=== PATIENT | female | born 1990 | race Caucasian/White ===

== ENCOUNTER 2020-10-25 09:34 | Outpatient (RCR) | payer OTHER, SELFPAY ==
[2020-10-25 10:13] VITALS: BP 109/72; PULSE 74
== END 2020-12-06 10:21 | disposition home or self-care (01) ==
LOC: ANHOBOP 09:34
PROVIDERS: Visit Provider Obstetrics & Gynecology
DX: O24.419 Gestational diabetes mellitus in pregnancy, unspecified control (principal); Z3A.34 34 weeks gestation of pregnancy
CPT/HCPCS: 59025

== ENCOUNTER 2020-11-08 11:51 | Inpatient (IN) | payer OTHER, SELFPAY ==
[2020-11-08] VITALS (37 sets, daily range): BP systolic 93–114; BP diastolic 51–71; PULSE 58–82; RESP 18; TEMP 36.6–36.8; O2SAT 96–100; BMI 34.3; BMI 33.8
[2020-11-08 17:29] LABS: Basophils Percent Auto 0.2 % (0.2-1.2); Eosinophils Absolute Auto 0.1 K/mm3 (0-0.3); Eosinophils Percent Auto 0.4 % (0-4.4); Hematocrit 35.8 % (37.0-47.0); Hemoglobin 12.1 g/dL (12.0-15.0); Immature Granulocyte Absolute 0.06 K/mm3 (0.00-0.031); Immature Granulocyte Percent A 0.4 % (0-0.5); Lymphocytes Absolute Auto 2.42 K/mm3 (0.9-3.2); Lymphocytes Percent Auto 15.4 % (18.3-44.2); Mean Corpuscular HGB Conc 33.8 g/dl (32-36); Mean Corpuscular Hemoglobin 31.7 pg (26-34); Mean Corpuscular Volume 93.7 fl (80-100); Mean Platelet Volume 12.7 fl (7.4-10.4); Monocytes Absolute Auto 1.1 K/mm3 (0.1-0.6); Monocytes Percent Auto 6.8 % (2.6-8.5); Neutrophils Percent Auto 76.8 % (45.5-73.1); Platelet Count Result 178 k/mm3 (150-375); Red Blood Count 3.82 M/mm3 (4.2-5.4); Red Cell Distribution Width 13.5 % (11.5-14.5); White Blood Count 15.7 K/mm3 (4.5-10.0)
[2020-11-08] MEDS: LACTATED RINGERS 1,000 ML 125 ML IV CONT (17:39)
--- NOTE | 2020-11-08 17:45 | PM.IMHP ---
H&P: HPI History of Present Illness Date/Time: 11/08/20 17:45 This patient is a 31-year-old female presents for abnormal heart tones. She is a 2 para 1001 at 36-,5/7 weeks with previous delivery. She was found to have a heart deceleration in the office. Upon extended monitoring, she has had multiple deep prolonged decelerations with movement. We have agreed to proceed with delivery. She denies any contractions, loss of fluid, vaginal bleeding. She denies any nausea, vomiting, fever, chills. She denies any chest pain shortness of breath. Chief Complaint: Thirty-six week gestation Review of Systems Constitutional: Constitutional: Reports no additional constitutional complaints, Denies fatigue, Denies headache(s), Denies lethargy and Denies weakness Eyes: Eyes: Reports no additional eye complaints, Denies blurry vision and Denies photophobia ENT: Reports as per HPI, Denies headache(s) and Denies neck pain Cardiovascular: Cardiovascular: Denies chest pain, Denies diaphoresis, Denies leg edema, Denies palpitations and Denies dyspnea Respiratory: Respiratory: Denies hemoptysis, Denies dyspnea and Denies wheezing Gastrointestinal: Gastrointestinal: Denies abdominal pain, Denies melena, Denies bloating, Denies hematochezia, Denies nausea and Denies vomiting Genitourinary: Genitourinary: Reports no additional female genitourinary complaints Musculoskeletal: Musculoskeletal: Denies joint swelling, Denies neck pain, Denies numbness and Denies stiffness Neurologic: Denies Abnormal speech present, Denies confusion, Denies headache(s), Denies numbness and Denies weakness Psychiatric: Psychiatric: Denies anxiety, Denies confusion, Denies depression, Denies homicidal ideation and Denies suicidal ideation Endocrine: Endocrine: Denies fatigue and Denies palpitations Allergic/Immunologic: Allergic/Immunologic: Denies wheezing [facility] Family History Family History (Updated 11/05/20 @ 15:39 by Brian Angelo RN) Father Hypertension Mother Hypertension Sibling Hypertension Grandparent Hypertension Diabetes mellitus Nicole's granulomatosis Social History Social History Substance use: never Spiritual care concerns: No Meds Home Medications and Allergies Home Medications Medication Instructions Recorded Confirmed Type prenat.vits,cristina,[id number] 1 tablet PO DAILY 11/05/20 11/05/20 History [ #2] Allergies Allergy/AdvReac Type Severity Reaction Status Date / Time amoxicillin Allergy Mild Nausea and Verified 11/08/20 16:40 Vomiting Cephalosporins Allergy Mild hives Verified 11/08/20 16:40 clavulanic acid Allergy Mild Nausea and Verified 11/08/20 16:40 Vomiting Penicillins Allergy Mild Nausea and Verified 11/08/20 16:40 Vomiting cephalexin Allergy Unknown Hives Verified 11/08/20 16:40 metoclopramide Allergy Unknown Hallucinati Verified 11/08/20 16:40 ng Exam Const: General: healthy appearing, comfortable and no acute distress; No confusion Orientation/consciousness: No confusion Eyes: Direct Ophthalmoscopy: No photophobia Resp: Auscultation: clear to auscultation bilaterally, no rales, no rhonchi and no wheezes Cardio: Rate: regular rate Heart sounds: no click, no murmurs and no rubs GI: Inspection: non-distended GI Palp: No abdominal tenderness Auscultation: normal bowel sounds Neuro: General: No confusion Speech: No Abnormal speech present Extrem: General: normal to inspection, no pedal edema and no calf tenderness H&P: Results Labs Labs: Short CBC 11/08/20 Range/Units 17:16 WBC 15.7 H (4.5-10.0) K/mm3 Hgb 12.1 (12.0-15.0) g/dL Hct 35.8 L (37.0-47.0) % Plt Count 178 (150-375) k/mm3 Assessment and Plan Assessment and plan (1) Non-reassuring heart tones complicating , antepartum: Code(s): O36.8390 - Maternal care for abnormalities of the heart rate or rhythm,
--- NOTE | 2020-11-08 17:49 | WPDHPUPDATE1 ---
History and Physical Update Update Date/Time: 11/08/20 17:49 History and Physical has been reviewed, including an updated exam of the patient. There are NO changes in the patient's condition. Risks, benefits, and alternatives have been discussed and questions answered. Patient agrees to proceed with procedure.
[2020-11-08] MEDS: CLINDAMYCIN 900 MG/D5W 50 ML 900 MG/50 ML PIGGYBACK 50 MG IVPB (17:50)
[2020-11-08] MEDS: GENTAMICIN SULFATE INJ 440 MG in DEXTROSE 5% 100 ML 100 MG IVPB (18:27)
--- NOTE | 2020-11-08 18:28 | WPDANESEPPF ---
Anes - Initial Pre Proc Eval Procedure: Repeat C section Date/Time: 11/08/20 18:28 Surgeon: Elvira Barlow MD Pre Op Diagnosis: Previous C section, Non reassuring heart tones Pre Op Diagnosis: NST Patient Data Age: 30 Gender: F Height: 1.61 m Weight: 88 kg Allergies Allergy/AdvReac Type Severity Reaction Status Date / Time amoxicillin Allergy Mild Nausea and Verified 11/08/20 16:40 Vomiting Cephalosporins Allergy Mild hives Verified 11/08/20 16:40 clavulanic acid Allergy Mild Nausea and Verified 11/08/20 16:40 Vomiting Penicillins Allergy Mild Nausea and Verified 11/08/20 16:40 Vomiting cephalexin Allergy Unknown Hives Verified 11/08/20 16:40 metoclopramide Allergy Unknown Hallucinati Verified 11/08/20 16:40 ng Home Medications Medication Instructions Recorded Confirmed Type prenat.vits,cristina,wns-[id number] 1 tablet PO DAILY 11/05/20 11/05/20 History [ #2] Laboratory Tests 11/08/20 11/08/20 11/08/20 17:16 17:16 17:16 WBC 15.7 K/mm3 H K/mm3 (4.5-10.0) RBC 3.82 M/mm3 L M/mm3 (4.2-5.4) Hgb 12.1 g/dL g/dL (12.0-15.0) Hct 35.8 % L % (37.0-47.0) MCV 93.7 fl fl (80-100) MCH 31.7 pg pg (26-34) MCHC 33.8 g/dl g/dl (32-36) RDW 13.5 % % (11.5-14.5) Plt Count 178 k/mm3 k/mm3 (150-375) MPV 12.7 fl H fl (7.4-10.4) Immature Gran % (Auto) 0.4 % % (0-0.5) Neut % (Auto) 76.8 % H % (45.5-73.1) Lymph % (Auto) 15.4 % L % (18.3-44.2) Hickman % (Auto) 6.8 % % (2.6-8.5) Eos % (Auto) 0.4 % % (0-4.4) Baso % (Auto) 0.2 % % (0.2-1.2) Lymph # (Auto) 2.42 K/mm3 K/mm3 (0.9-3.2) Hickman # (Auto) 1.1 K/mm3 H K/mm3 (0.1-0.6) Eos # (Auto) 0.1 K/mm3 K/mm3 (0-0.3) Baso # (Auto) 0.0 K/mm3 K/mm3 (0.0-0.1) Abs Immat Gran (auto) 0.06 K/mm3 H K/mm3 (0.00-0.031) Absolute Neuts (auto) 12.0 K/mm3 H K/mm3 (1.3-6.7) Absolute Nucleated RBC 0.0 K/mm3 K/mm3 (0.0-0.012) Nucleated RBC % 0.0 % % (0.0-0.2) RPR Pending Blood Type O Positive Antibody Screen Negative Patient hx anesthesia problems: none Family hx anesthesia problems: none [facility] Past Medical History Medical History (Updated 11/08/20 @ 18:29 by Jamarcus Villalba DO) GDM (gestational diabetes mellitus) Family History Family History (Updated 11/05/20 @ 15:39 by Brian Angelo RN) Father Hypertension Mother Hypertension Sibling Hypertension Grandparent Hypertension Diabetes mellitus Nicole's granulomatosis Social History Social History Substance use: never Spiritual care concerns: No Anes - Eval Final PreProcedure Day of Procedure 11/08/20 18:28 Patient weight: obese Heart: regular rate and rhythm Lungs: clear to auscultation and normal air movement Airway: Mallampati scale class II Neurological: alert and oriented Last oral intake: >/= 8 hours ASA classification: III Emergent: no Anesthetic plan: proceed Anesthesia type and monitoring: regional spinal and standard monitoring Informed Consent: The patient's anesthetic plan and its attendant risks and benefits were discussed with the patient/family/POA. Questions were solicited and answers provided to the satisfaction of the patient/family/POA.
--- NOTE | 2020-11-08 19:41 | P.OP_ITS ---
Procedure Note - Detailed Date of procedure: 11/08/20 Pre-op diagnosis: NST Nonreassuring FHT's, 36 week gestation Post-op diagnosis: same Procedure performed: low-transverse delivery Description of procedure: The patient was taken the operating room. She was prepped and draped in the dorsal supine position with leftward tilt after induction of spinal anesthetic. When anesthesia was found to be adequate a low- transverse skin incision was made and carried down to the level the fascia with the knife. The fascial incision was made at the midline with a scalpel. The fascial incision was extended laterally with Butts scissors. The fascia was tented upward superior and inferior with Hcava clamps. The rectus muscles were dissected off bluntly. The rectus muscles at the midline. The prepe ritoneal fat was dissected bluntly at the superior aspect of the separate the rectus muscles. The peritoneal cavity was entered bluntly in the same area. The peritoneal incision was extended superior and inferior with good visualization of bladder. Bladder blade was inserted. A low-transverse incision was made on the uterus with the scalpel. It was carried down the level of the amniotic cavity with a knife. The amniotic cavity bluntly. The uterine incision was made laterally with blunt traction. The infant was delivered. The cord was clamped and cut. The infant was handed off to waiting pediatric staff. Cord bloods were obtained. The placenta was removed manually. The uterus was exteriorized. Uterus cleared of all clots and debris. Uterus closed in 0 Vicryl in a running locked fashion. An imbricating layer of 0 Vicryl was also placed on the to bolster the closure. The uterus was returned to the abdomen. The gutters were cleared of all clots and debris. The fascia was closed 0 Vicryl in a running fashion. Subcutaneous tissue was irrigated and bleeding areas were cauterized. The skin was closed with subcuticular absorbable mackenzie. The incision was covered with derma car. The patient tolerated the procedure well. She was taken recovery room stable condition. Sponge, lap, needle counts were correct x2. Anesthesia: spinal Surgeon: Elvira Barlow MD Estimated blood loss (mL): 400 Drains: No Packing: No Pathology: none sent Complications: No immediate complications Condition: stable Disposition: floor Findings: Normal maternal anatomy. Average size infant with normal Apgars. Cord entangled in feet and short
--- NOTE | 2020-11-08 20:47 | LDADM ---
This patient, Selene Alaniz, was admitted to Labor/Delivery/Recovery 119 on 11/08/20 at 11:53. Plans for labor, pain management and were discussed with patient. Patient/family oriented to hospital policies and general routines including ID bracelet, bed and alarms, visiting hours, pain management, procedures, bathroom and other care routines, personal items, smoking policy, room service/diet and guest tray routines, security routines, call light, and visiting hours. Patient/Family are encouraged to report perceived risks to care and to ask questions if they do not understand what they are told or what they should do. See OBIX for further documentation.
[2020-11-08] MEDS: OXYTOCIN 30 UNITS/NS 500 ML 30 UNITS/500 ML BAG 125 UNITS IV CONT (21:05)
--- NOTE | 2020-11-08 22:00 | OBPPTRN ---
Patient transferred to post room #276 via stretcher. Support person present. Oriented to unit, room, information board, rooming in, admission packet and security measures. Patient verbalizes understanding.
[2020-11-09] MEDS: LANOLIN (LANSINOH) 7.5 GM CREAM 1 APPLIC TOPICAL (02:01)
[2020-11-09] MEDS: SIMETHICONE 80 MG TAB.CHEW PO ×3 (02:01→17:52)
[2020-11-09] MEDS: IBUPROFEN 600 MG TABLET PO ×3 (02:02→17:52)
[2020-11-09 04:20] VITALS: BP 106/68; PULSE 72; RESP 18; TEMP 36.8; O2SAT 98
[2020-11-09 06:15] LABS: Basophils Absolute Auto 0.1 K/mm3 (0.0-0.1); Basophils Percent Auto 0.3 % (0.2-1.2); Eosinophils Absolute Auto 0.1 K/mm3 (0-0.3); Eosinophils Percent Auto 0.6 % (0-4.4); Hematocrit 31.8 % (37.0-47.0); Hemoglobin 10.5 g/dL (12.0-15.0); Immature Granulocyte Absolute 0.06 K/mm3 (0.00-0.031); Immature Granulocyte Percent A 0.4 % (0-0.5); Lymphocytes Absolute Auto 1.71 K/mm3 (0.9-3.2); Mean Corpuscular Hemoglobin 31.3 pg (26-34); Mean Corpuscular Volume 94.6 fl (80-100); Monocytes Absolute Auto 1.2 K/mm3 (0.1-0.6); Monocytes Percent Auto 8.2 % (2.6-8.5); Neutrophils Absolute Auto 11.2 K/mm3 (1.3-6.7); Neutrophils Percent Auto 78.5 % (45.5-73.1); Platelet Count Result 166 k/mm3 (150-375); Red Blood Count 3.36 M/mm3 (4.2-5.4); Red Cell Distribution Width 13.5 % (11.5-14.5); White Blood Count 14.3 K/mm3 (4.5-10.0)
--- NOTE | 2020-11-09 06:45 | PC.NURSE ---
PT introductions made and plan of care discussed per post op c section, pain management, breast feeding, pumping, daily care activities. PT will receive instructions via one to one discussion and utilizing the mom baby care guide. recipients are pt and her spouse. No barriers to learning identified. PT verbalized understanding of such instructions.
[2020-11-09 08:45] VITALS: BP 110/67; PULSE 70; RESP 18; TEMP 37; O2SAT 98
--- NOTE | 2020-11-09 10:06 | PM.OBPNVD ---
OB - PN: Subj Subjective Date/time seen: 11/09/20 10:06 Patient comments: no complaints baby status: doing well OB - PN: Obj Data Labs CBC & Chem 7: 11/09/20 04:26 Labs: Laboratory Results - last 24 hr 11/08/20 11/08/20 11/09/20 17:16 17:16 04:26 WBC 15.7 H 14.3 H RBC 3.82 L 3.36 L Hgb 12.1 10.5 L Hct 35.8 L 31.8 L MCV 93.7 94.6 MCH 31.7 31.3 MCHC 33.8 33.0 RDW 13.5 13.5 Plt Count 178 166 MPV 12.7 H 13.0 H Immature Gran % (Auto) 0.4 0.4 Neut % (Auto) 76.8 H 78.5 H Lymph % (Auto) 15.4 L 12.0 L Davidson % (Auto) 6.8 8.2 Eos % (Auto) 0.4 0.6 Baso % (Auto) 0.2 0.3 Lymph # (Auto) 2.42 1.71 Davidson # (Auto) 1.1 H 1.2 H Eos # (Auto) 0.1 0.1 Baso # (Auto) 0.0 0.1 Abs Immat Gran (auto) 0.06 H 0.06 H Absolute Neuts (auto) 12.0 H 11.2 H Absolute Nucleated RBC 0.0 0.0 Nucleated RBC % 0.0 0.0 % Immature Plt Fraction 13.0 H Blood Type O Positive Antibody Screen Negative OB - PN A/P Plan day: 1 Plan: routine care Time Spent With Patient Time: Total time spent is greater than 50% in coordination of care (as documented) at patient's floor/unit and/or counseling patient: Review of Systems Review of Systems: All systems reviewed & are unremarkable except as noted in HPI and below Exam Const: General: cooperative Resp: Effort & Inspection: normal respiratory effort GI: Inspection: other (Incision, small blood pressure dressing applied by RN) Percussion: Yes other
--- NOTE | 2020-11-09 10:33 | WPDANLDPN2 ---
Anes-Prog Note L&D Date/Time: 11/09/20 10:33 Comfortable throughout: section Neuraxial method: spinal Epidural/Spinal procedure site: clean & non-tender Neuro status: Neuro function grossly intact. Cardiovascular status: normal Respiratory status: normal Airway patency: baseline Mental status: baseline Post-Op hydration status: normal Vital Signs: Last Vital Signs Temp 36.8 C 11/09/20 04:20 Pulse 72 11/09/20 04:20 Resp 18 11/09/20 04:20 BP 106/68 11/09/20 04:20 Pulse Ox 98 11/09/20 04:20 Pain score (VAS): 0 I/O: Intake & Output 11/08/20 11/09/20 11/09/20 23:59 07:59 15:59 Intake Total 1050 3900 Output Total 1044 1100 Balance 6 2800 Post-procedural complaints: none Patient feedback: Patient satisfied with anesthetic care.
--- NOTE | 2020-11-09 10:33 | WPDANLDNPN2 ---
Anes-Prog Note L&D-Neuraxial Date/Time: 11/09/20 10:33 Neuraxial medications: intrathecal PF morphine Opiod-related complaints: none Patient feedback: Patient satisfied with post-operative pain management.
[2020-11-09] MEDS: DOCUSATE SODIUM 100 MG CAPSULE PO ×2 (10:41→17:53)
[2020-11-09] MEDS: ACETAMINOPHEN 325 MG TABLET 650 MG PO ×2 (10:41→17:51)
[2020-11-09] MEDS: MULTIVIT/MIN/PREN/FOL AC/IRON TABLET 1 TAB PO (10:41)
[2020-11-09 12:00] VITALS: BP 118/64; PULSE 72; RESP 18; TEMP 36.9; O2SAT 98
[2020-11-09 17:30] VITALS: BP 110/57; PULSE 73; RESP 18; TEMP 37.1; O2SAT 100
[2020-11-09 20:10] VITALS: BP 113/63; PULSE 69; RESP 18; TEMP 36.7; O2SAT 100
[2020-11-10] MEDS: SIMETHICONE 80 MG TAB.CHEW PO ×3 (05:35→19:30)
[2020-11-10] MEDS: ACETAMINOPHEN 325 MG TABLET 650 MG PO ×2 (05:35)
[2020-11-10] MEDS: IBUPROFEN 600 MG TABLET PO ×4 (05:36→19:31)
--- NOTE | 2020-11-10 07:45 | PC.NURSE ---
PT introductions made and plan of care discussed per post op c section, pain management, breast feeding and pumping and bottle feeding, daily care activities. any instruction provided by one to one discussion and mom baby care guide book through the day. PT verbalized understanding of such instructions.
--- NOTE | 2020-11-10 08:23 | PM.OBPNVD ---
OB - PN: Subj Subjective Date/time seen: 11/10/20 08:23 Patient comments: incisional pain (with walking, some oozing) baby status: doing well OB - PN: Obj Data Labs CBC & Chem 7: 11/09/20 04:26 OB - PN A/P Plan day: 2 Plan: routine care Comments: discussed pain management and pt to try norco for pain relief Time Spent With Patient Time: Total time spent is greater than 50% in coordination of care (as documented) at patient's floor/unit and/or counseling patient: Review of Systems Review of Systems: All systems reviewed & are unremarkable except as noted in HPI and below Exam Const: General: cooperative Nutritional Appearance: average body habitus and well nourished Resp: Effort & Inspection: normal respiratory effort GI: Inspection: other (incision , no sign of infection, small oozing, steristrips applied by RN) Psych: Thought process: Normal thought process present Insight: Good insight present (Psych) Judgement: Good judgement present (Psych)
[2020-11-10 09:30] VITALS: BP 120/66; PULSE 75; RESP 18; TEMP 37.3; O2SAT 100
[2020-11-10] MEDS: DOCUSATE SODIUM 100 MG CAPSULE PO (09:37)
[2020-11-10] MEDS: MULTIVIT/MIN/PREN/FOL AC/IRON TABLET 1 TAB PO (09:37)
[2020-11-10] MEDS: HYDROcodone/acetaminophen (*CRX) 5-325 MG TABLET 1 TAB PO ×3 (11:42→19:30)
[2020-11-10 19:30] VITALS: BP 135/63; PULSE 80; RESP 16; TEMP 36.9; O2SAT 100
[2020-11-11] MEDS: SIMETHICONE 80 MG TAB.CHEW PO ×3 (00:46→11:11)
[2020-11-11] MEDS: HYDROcodone/acetaminophen (*CRX) 5-325 MG TABLET 1 TAB PO ×4 (00:46→11:11)
[2020-11-11] MEDS: DOCUSATE SODIUM 100 MG CAPSULE PO ×2 (00:46→08:06)
[2020-11-11] MEDS: IBUPROFEN 600 MG TABLET PO ×2 (04:48→11:10)
[2020-11-11 06:39] LABS: Rapid Plasma Reagin Non-Reactive (NonReactive)
[2020-11-11 08:00] VITALS: BP 117/70; PULSE 77; RESP 18; TEMP 37; O2SAT 100
[2020-11-11] MEDS: MULTIVIT/MIN/PREN/FOL AC/IRON TABLET 1 TAB PO (08:06)
--- NOTE | 2020-11-11 08:30 | PM.OBPNVD ---
OB - PN: Subj Subjective Date/time seen: 11/11/20 08:30 Patient comments: no complaints, pain well controlled, incisional pain, tolerating diet and flatus present OB - PN: Obj Data Labs CBC & Chem 7: 11/09/20 04:26 Labs: Laboratory Results - last 24 hr 11/08/20 17:16 RPR Non-reactive OB - PN A/P Plan day: 3 Plan: routine care, discharge home and other Comments: Incision check in two days. Given precautions Time Spent With Patient Time: Total time spent is greater than 50% in coordination of care (as documented) at patient's floor/unit and/or counseling patient: Exam Const: General: comfortable, no acute distress and alert Resp: Effort & Inspection: normal respiratory effort Auscultation: no crackles, no rales and no rhonchi Cardio: Rate: regular rate Heart sounds: no click, no murmurs and no rubs GI: Inspection: non-distended GI Palp: No Tenderness to palpation present (GI) Auscultation: normal bowel sounds Other: Incision -Steri-Strips cover the middle 3rd of the incision. There is some skin separation this area and it is weeping. Extrem: General: normal to inspection, no pedal edema and no calf tenderness
--- NOTE | 2020-11-11 08:32 | PM.OBDSVD ---
DS: Admitting Diagnosis Admitting Diagnosis Admitting Diagnosis: Term DS: Discharge Diagnosis Discharge Diagnosis (1) delivery delivered: Code(s): O82 - Encounter for delivery without indication Status: Acute (2) Non-reassuring heart tones complicating , antepartum: Code(s): O36.8390 - Maternal care for abnormalities of the heart rate or rhythm, unspecified trimester, not applicable or unspecified Status: Acute (3) 36 weeks gestation of : Code(s): Z3A.36 - 36 weeks gestation of Status: Acute OB - DS: Summary OB Procedures : None OB Procedures Intrapartum: OB Procedures: : None Peripartum Data Procedures: Procedures Operation Date: 11/08/20 19:00 Actual Procedures Side Surgeon p Section Elvira Barlow MD Time Spent with Patient Time attestation: Total time spent providing and/or coordinating discharge services: DS: Data Data Completed and Pending Pending studies at discharge: Pending at discharge 11/11/20 07:33 Surgical [PTH] Routine Labs on day of discharge: Labs from last 24 hours 11/08/20 17:16 RPR Non-reactive Discharge Plan Discharge Discharging Clinician: Elvira Barlow Patient Disposition: Home, Self-Care Activity: pelvic rest Diet: regular Patient Instructions: Antibiotic Form Stand Alone Forms: General Discharge Information Follow-up/Referrals: Elvira Barlow MD [Physician] - Discharge Medications: New hydrocodone-acetaminophen 5-325 mg tablet 1 - 2 tablet PO Q4H PRN (Reason: pain) Qty: 25 RF: 0 Continued #2 Tablet 1 tablet PO DAILY RF: 0 Date of admission: 11/08/20 11:53 Primary Care Provider: PHYSICIAN,ORACLE ANALYST Admitting Provider: Elvira Barlow Attending physician on admission: Elvira Barlow Condition: Stable
--- NOTE | 2020-11-11 09:30 | PC.NURSE ---
Consulted with patient, mother reports infant eagerly fed after delivery then became sleepy and has not effectively fed since. Mother will attempt each feeding then supplement and pumping at times. Discussed and the early 36 5/7 week , establishing may have its own unique set of circumstances due to their immaturity. infants may be less alert, have less stamina and may have issues with latch, suck and swallow. With the possible inability to have a vigorous suck swallow, infants may not be adequately stimulating mother and/or able to have adequate milk transfer. Pumping should be considered for additional stimulation and to offer EBM as part of supplement if needed. Mother reports she has not been pumping regularly due to not getting anything Reviewed milk should transition in within a few days of regular stimulation and EBM may be given as part of each feeding. Mother has been given a nipple shield to use to assist with latch. Mother states she has not used the shield for latching she is uncomfortable with use. Discussed the reasoning of shield use. Mother prefers not to use. Reviewed feeding cues, frequencies, duration of feedings, feeding elimination flow sheet, and signs of adequate intake. Demonstrated stimulation techniques to wake infant for feeding. Assisted with infant to breast. Reviewed positioning/alignment in football, holding breast in C hold and guided asymmetrical latch on. Infant was able to latch correctly after several attempts. Infant held nipple in his mouth with no effective suckling. Attempt for 5 minutes. Feeding plan will be to attempt infant to breast for 5-10 minutes each feeding, the supplement 20-25 mls EBM/formula and then pump 15-20 minutes. Reviewed may not want to feed for 4 hours with 25mls per feeding. Advised mother follow infant feeding plan and increase pumping to 20 minutes if infant is feeding every 4 hours. Discussed signs when infant is ready for increase in supplementation and when may be ready to decrease supplementation. Advised not to discontinue supplement until seen and discussed with ICP or follow up RN. Mother is feeding as required and waking to feed if needed. is currently meeting outcomes for weight, output, jaundice and feeding frequencies. Mother states she feels confident to continue feeding plan of attempt/supplement/pump at home. Reviewed transition to breast milk, signs of adequate intake, and engorgement/relief. Instructed to call ICP if intake/output less than required. Reviewed regular medications mother is taking. Information provided per Vanita. Reviewed community resources on the [facility] website and in the Mom/Baby guide. Information on outpatient services provided. Mother has no further questions at this time.
--- NOTE | 2020-11-11 11:14 | PC.NURSE ---
Patient viewed the discharge video Mother & Baby Care, The First Two Weeks . Patient was given the opportunity and encouraged to ask questions. Patient verbalized understanding of information shared and has been given the mother/baby guide for home reference.
[2020-11-13 11:50] VITALS: BP 123/88; PULSE 68; RESP 20; TEMP 37; O2SAT 100
== END 2020-11-11 11:56 | disposition home or self-care (01) | DRG 540 ==
LOC: ANHOBOP 15:16 → ANHOBPP 15:17 → ANHLDR 19:41 → ANHOB2 22:01
PROVIDERS: Admitting Provider Obstetrics & Gynecology; Visit Provider Obstetrics & Gynecology
PROC: 10D00Z1 Extraction of Products of Conception, Low, Open Approach (ICD-10-PCS; CPT 59514; principal; 2020-11-08 19:00)
DX: O36.8330 Maternal care for abnormalities of the fetal heart rate or rhythm, third trimester, not applicable or unspecified (principal); Z3A.36 36 weeks gestation of pregnancy; Z37.0 Single live birth; O34.211 Maternal care for low transverse scar from previous cesarean delivery; O24.429 Gestational diabetes mellitus in childbirth, unspecified control; O99.214 Obesity complicating childbirth; E66.9 Obesity, unspecified
CPT/HCPCS: 36415; 85025; 85055; 86592; 86850; 86900; 86901; 88307; A9270; J1580; J1885; J2274; J2405; J2590; J7120

== ENCOUNTER 2022-10-02 13:07 | Day surgery (SDC) | payer BC, OTHER, SELFPAY ==
[2022-10-02 10:39] VITALS: BMI 37.0
--- NOTE | 2022-10-02 10:43 | PC.NURSE ---
Report to the Outpatient Waiting Room, entrance under the green pavilion located off [facility], at time 1315 on date 10/02/22. Planned Procedure Time: 1515. Time changes happen often and if your time is changed the preop area will call you the afternoon before. - You and your visitor will be asked to self-screen and do not enter if you have any COVID symptoms. - Only one visitor is requested with a max of two and NO children visitors are allowed at this time. - The patient visitor may be requested to leave or wait in car when not with patient due to distancing restrictions. - A mask is optional within the hospital at this time. Patients may have clear liquids (water, carbonated beverages, clear teas, apple juice) until 3 hours prior to surgery with a maximum of 20 ounces. - No food from midnight until time of surgery Take the following medications with a SIP of water the morning of surgery: N/A DO NOT STOP ANY OF YOUR OTHER PRESCRIPTION MEDICATIONS PRIOR TO SURGERY ?EXCEPT THE FOLLOWING Medications to discontinue per physician: N/A Date to take last dose: N/A Please no make-up, nail macedonian, hairspray, perfume, deodorant, or body powder the day of surgery. No jewelry (including any body piercings) or valuables the day of surgery, leave them at home. Please take a shower or bath the night before, or the morning of, surgery with an antibacterial soap. Wear comfortable, loose fitting clothing. - Jewelry must be removed prior to entering the operating room. Rings and piercings that are not removed may be cut off. - The hospital will not accept responsibility for valuables. - Please leave all valuables, including medications, at home the day of surgery. If you are going home after surgery, a licensed compactor driver must drive you home. - NO public transportation without another adult if you receive anesthesia. - We recommend that an adult stay with you for 24 hours following discharge. - We also recommend that you do not drive, make important decision, drink alcoholic beverages, or take any drugs that were not prescribed by your health care provider for at least 24 hours after your discharge time. Follow any additional instructions given to you from your surgeon. If you or anyone in your household have experienced Covid symptoms in the past week, please notify your surgeon or the nurse liaison at the phone number below for possible testing. Telephone instructions given to PT - MARIA VICTORIA DAVIS and asked if any additional questions and then verbalized understanding. Patient advised to call surgeon office or pre surgery nurse liaison [phone] if any additional questions.
--- NOTE | 2022-10-02 11:12 | WPDHPUPDATE1 ---
History and Physical Update Update Date/Time: 10/02/22 11:12 History and Physical has been reviewed, including an updated exam of the patient. There are NO changes in the patient's condition. Risks, benefits, and alternatives have been discussed and questions answered. Patient agrees to proceed with procedure.
--- NOTE | 2022-10-02 11:12 | PM.IMHP ---
H&P: HPI History of Present Illness Date/Time: 10/02/22 11:12 Chief Complaint: missed A/B first-trimester Narrative: this is a 32-year-old female with first-trimester missed A/ B. Ultrasound proves a none curing 7 week in the uterus consistent with a probable blighted. Risks and benefits of suction D and C reviewed including the exclusive of , aspiration pneumonia, bleeding, transfusion, perforation injury to bowel, bladder, ureters, or other internal organs with need for open laparotomy. Received the ACOG handout entitled dilatation curettage. She had all questions answered and asked to proceed PMFSH Past Medical History Medical History Allergies GDM (gestational diabetes mellitus) Surgical History Surgical History Previous section (09/2008) Previous section (10/2020) Family History Family History Father Hypertension Alcoholism Mother Hypertension Alcoholism Depression Thyroid disorder Sibling Hypertension Grandparent Hypertension Nicole's granulomatosis Grandparent Diabetes mellitus Hypertension Social History Social History Smoking status: Never smoker Alcohol intake: current Alcohol use details: RARE WHEN NOT Substance use: never Substance use type: does not use Living arrangements: with family Occupation/Education: occupation 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[employer] Gender identity (if verbalized by the patient): Female Spiritual care concerns: No Agree to blood products: Yes Meds Home Medications and Allergies Home Medications Medication Instructions Recorded Confirmed Type No Home Medications 09/03/22 10/02/22 History Allergies Allergy/AdvReac Type Severity Reaction Status Date / Time amoxicillin Allergy Mild Nausea and Verified 10/02/22 10:39 Vomiting Cephalosporins Allergy Mild hives Verified 10/02/22 10:39 clavulanic acid Allergy Mild Nausea and Verified 10/02/22 10:39 Vomiting Penicillins Allergy Mild Nausea and Verified 10/02/22 10:39 Vomiting cephalexin Allergy Unknown Hives Verified 10/02/22 10:39 metoclopramide Allergy Unknown Hallucinati Verified 10/02/22 10:39 ng Exam Const: General: cooperative, healthy appearing and comfortable Nutritional Appearance: average body habitus Orientation/consciousness: oriented to person, oriented to place and oriented to time HENMT: Head: normal to inspection Resp: Effort & Inspection: normal respiratory effort Cardio: Rate: regular rate Rhythm: regular rhythm Heart sounds: S1 normal heart sound present and S2 normal heart sound present GI: Inspection: normal to inspection : External Female Exam: normal external appearance Speculum Exam - Vagina: normal appearance of the vagina Speculum Exam - Cervix: normal appearance of the cervix Bimanual exam- vagina & uterus: enlarged Bimanual Exam- Adnexa, other: normal adnexae Assessment and Plan Assessment and plan (1) Missed : Code(s): O02.1 - Missed Status: Acute Plan suction dilatation and curettage
[2022-10-02 13:19] VITALS: BP 137/95; PULSE 91; RESP 16; TEMP 36.6; O2SAT 98
[2022-10-02] MEDS: ACETAMINOPHEN 500 MG TABLET 1000 MG PO (13:23)
--- NOTE | 2022-10-02 13:23 | WPDANESEPPF ---
Anes - Initial Pre Proc Eval Procedure: Operation Date: 10/02/22 15:15 Proposed Procedures p Suction Dilation and Curettage - Osmin Parker MD Date/Time: 10/02/22 13:23 Surgeon: Osmin Parker MD Pre Op Diagnosis: Missed Ab Patient Data Age: 32 Gender: F Height: 1.63 m Weight: 93.2 kg Last Vital Signs Temp 36.6 C 10/02/22 13:19 Pulse 91 10/02/22 13:19 Resp 16 10/02/22 13:19 BP 137/95 H 10/02/22 13:19 Pulse Ox 98 10/02/22 13:19 O2 Del Method Room Air 10/02/22 13:19 Allergies Allergy/AdvReac Type Severity Reaction Status Date / Time amoxicillin Allergy Mild Nausea and Verified 10/02/22 13:13 Vomiting Cephalosporins Allergy Mild hives Verified 10/02/22 13:13 clavulanic acid Allergy Mild Nausea and Verified 10/02/22 13:13 Vomiting Penicillins Allergy Mild Nausea and Verified 10/02/22 13:13 Vomiting cephalexin Allergy Unknown Hives Verified 10/02/22 13:13 metoclopramide Allergy Unknown Hallucinati Verified 10/02/22 13:13 ng Home Medications Medication Instructions Recorded Confirmed Type hydrocodone 5 mg-acetaminophen 325 1 tablet PO Q4H PRN pain #20 tabs 10/02/22 Rx mg tablet Patient hx anesthesia problems: none Family hx anesthesia problems: none Results Review: All pre-operative results and documents have been reviewed as part of the pre-operative evaluation. [facility] Past Medical History Medical History Allergies GDM (gestational diabetes mellitus) Surgical History Surgical History Previous section (09/2008) Previous section (10/2020) Family History Family History Father Hypertension Alcoholism Mother Hypertension Alcoholism Depression Thyroid disorder Sibling Hypertension Grandparent Hypertension Nicole's granulomatosis Grandparent Diabetes mellitus Hypertension Social History Social History Smoking status: Never smoker Alcohol intake: current Alcohol use details: RARE WHEN NOT Substance use: never Substance use type: does not use Living arrangements: with family Occupation/Education: occupation 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[employer] Gender identity (if verbalized by the patient): Female Spiritual care concerns: No Agree to blood products: Yes Anes - Eval Final PreProcedure Day of Procedure 10/02/22 13:23 Patient weight: obese Heart: regular rate and rhythm Lungs: clear to auscultation Airway: Mallampati scale class II Neurological: alert and oriented Last oral intake: >/= 8 hours ASA classification: II Emergent: no Anesthetic plan: proceed Anesthesia type and monitoring: general GIVS and standard monitoring Results Review: All pre-operative results and documents have been reviewed as part of the pre-operative evaluation. Informed Consent: The patient's anesthetic plan and its attendant risks and benefits were discussed with the patient/family/POA. Questions were solicited and answers provided to the satisfaction of the patient/family/POA.
[2022-10-02] MEDS: LACTATED RINGERS 1,000 ML 30 ML IV CONT (13:32)
[2022-10-02 13:51] LABS: Hematocrit 40.2 % (37.0-47.0); Hemoglobin 13.7 g/dL (12.0-15.0)
[2022-10-02] MEDS: LIDOCAINE HCL 1% LOCAL INJ 10 ML VIAL INFILTRATE (13:53)
--- NOTE | 2022-10-02 13:58 | W.PM.PROC2 ---
Procedure Note - Detailed Date of Procedure 10/02/22 Pre-op Diagnosis Missed Ab Post-op Diagnosis Same Procedure Performed Suction dilatation and curettage Surgeon Osmin Parker MD Anesthesia General Indications 32-year-old female with missed A/B in the 1st trimester Findings uterus sounded to 9cm. Tissue consistent with products of conception Description of Procedure patient was prepped draped in the normal sterile fashion placed in dorsal lithotomy position. Under excellent general endotracheal anesthesia weighted speculum placed posterior fornix vagina. Anterior lip of the cervix grasped with single-tooth tenaculum. 2.5cc of 1% xylocaine anesthesia placed at 2, 4, 8, 10:00 a.m. of the cervix. Uterus sounded to 9cm. Serial dilatation with fragmented dilators performed followed by passage of the 10. Suction curette. Moderate amount of placental tissue was removed. When a good grating sound heard the instruments removed. All were accounted for. Patient went was awakened and went to recovery in satisfactory condition. All sponge, needle, instrument counts were correct. There were no immediate complications Estimated Blood Loss 25 Drains No Packing No Pathology Yes Complications No immediate complications Condition Stable Disposition PACU
[2022-10-02 14:04] VITALS: BP 101/70; BP 118/64; PULSE 78; PULSE 99; RESP 12; RESP 24; TEMP 36.3; O2SAT 100
[2022-10-02 14:15] VITALS: BP 101/70; PULSE 78; RESP 20; O2SAT 100
[2022-10-02 14:26] VITALS: BP 109/67; PULSE 80; RESP 14; O2SAT 100
[2022-10-02 14:28] VITALS: BP 116/73; PULSE 71; RESP 18
[2022-10-02 14:55] VITALS: BP 117/77; PULSE 65; RESP 18
== END 2022-10-02 15:05 | disposition home or self-care (01) ==
LOC: ANHSURGERY 15:30
PROVIDERS: PCP Nurse Practitioner Family; Visit Provider Obstetrics & Gynecology
PROC: (CPT 59820; principal; 2022-10-02 15:15)
DX: O02.1 Missed abortion (principal)
CPT/HCPCS: 59820; 36415; 85014; 85018; 85461; 86850; 86900; 86901; 88305; A9270; J0330; J1100; J2405; J2704; J7120

== ENCOUNTER 2024-03-04 23:07 | Inpatient (IN) | payer BC, SELFPAY ==
[2024-03-05] VITALS (13 sets, daily range): BP systolic 92–113; BP diastolic 47–67; PULSE 64–76; RESP 14–20; TEMP 36.6–37.2; O2SAT 95–100; BMI 35.9
--- NOTE | 2024-03-05 01:10 | WPDANESEPP ---
Anes - Eval Pre Procedure Procedure: Operation Date: 03/14/24 07:30 Proposed Procedures p Repeat Section - Osmin Parker MD Date/Time: 03/05/24 01:10 Pre Op Diagnosis: CTX Patient Data Age: 34 Gender: F Height: Weight: Allergies Allergy/AdvReac Type Severity Reaction Status Date / Time amoxicillin Allergy Mild Nausea and Verified 03/04/24 13:28 Vomiting Cephalosporins Allergy Mild hives Verified 03/04/24 13:28 clavulanic acid Allergy Mild Nausea and Verified 03/04/24 13:28 Vomiting Penicillins Allergy Mild Nausea and Verified 03/04/24 13:28 Vomiting cephalexin Allergy Unknown Hives Verified 03/04/24 13:28 metoclopramide Allergy Unknown Hallucinati Verified 03/04/24 13:28 ng Home Medications Medication Instructions Recorded Confirmed Type vits no.126-ferrous fum 1 tablet PO DAILY 03/04/24 03/04/24 History 28 mg iron-folic acid 800 mcg tablet (Classic ) Patient hx anesthesia problems: none Family hx anesthesia problems: none Results Review: All pre-operative results and documents have been reviewed as part of the pre-operative evaluation. [facility] Past Medical History Medical History Allergies GDM (gestational diabetes mellitus) URI (upper respiratory infection) Surgical History Surgical History Previous section (09/2008) Previous section (10/2020) Family History Family History Father Hypertension Alcoholism Mother Hypertension Alcoholism Depression Thyroid disorder Sibling Hypertension Grandparent Hypertension Nicole's granulomatosis Grandparent Diabetes mellitus Hypertension Social History Social History Smoking status: Never smoker Alcohol intake: current Alcohol use details: RARE WHEN NOT Substance use: never Substance use type: does not use Living arrangements: with family Occupation/Education: occupation 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
--- NOTE | 2024-03-05 01:17 | WPDHPUPDATE1 ---
History and Physical Update Update Date/Time: 03/05/24 01:17 History and Physical has been reviewed, including an updated exam of the patient. There are NO changes in the patient's condition. Risks, benefits, and alternatives have been discussed and questions answered. Patient agrees to proceed with procedure.
--- NOTE | 2024-03-05 01:18 | PM.IMHP ---
H&P: HPI History of Present Illness Date/Time: 03/05/24 01:18 Chief Complaint: labor prior csection x 2 Narrative: The patient is a 34-year-old A1 at 37 and 6/7 weeks gestation in labor. Patient with contractions every 2 to 4 minutes and breathing through then. Patient has had change in her cervical effacement. The patient has had 2 prior sections. Plan is to proceed with a repeat section. The has been complicated by advanced maternal age. She has been followed by [facility] Medicine for cyst on the left kidney. Patient states no other complications with the . labs O positive, rubella immune, RPR negative, hepatitis-B surface antigen negative, HIV negative. Review of Systems Review of Systems: not repeated day of surgery; patient states no changes in status PMF Past Medical History Medical History (Updated 03/05/24 @ 01:25 by Brisa Pool MD) Allergies GDM (gestational diabetes mellitus) Prior Surgical History Surgical History (Updated 03/05/24 @ 01:25 by Brisa Pool MD) History of D&C 09/17 for spontaneous Previous section (09/2008) for breech Previous section (10/2020) for bradycardia Family History Family History Father Hypertension Alcoholism Mother Hypertension Alcoholism Depression Thyroid disorder Sibling Hypertension Grandparent Hypertension Nicole's granulomatosis Grandparent Diabetes mellitus Hypertension Social History Social History Smoking status: Never smoker Alcohol intake: current Alcohol use details: RARE WHEN NOT Substance use: never Substance use type: does not use Living arrangements: with family Occupation/Education: occupation 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[employer] Gender identity (if verbalized by the patient): Female Spiritual care concerns: No Agree to blood products: Yes Meds Home Medications and Allergies Home Medications Medication Instructions Recorded Confirmed Type vits no.126-ferrous fum 1 tablet PO DAILY 03/04/24 03/04/24 History 28 mg iron-folic acid 800 mcg tablet (Classic ) Allergies Allergy/AdvReac Type Severity Reaction Status Date / Time amoxicillin Allergy Mild Nausea and Verified 03/04/24 13:28 Vomiting Cephalosporins Allergy Mild hives Verified 03/04/24 13:28 clavulanic acid Allergy Mild Nausea and Verified 03/04/24 13:28 Vomiting Penicillins Allergy Mild Nausea and Verified 03/04/24 13:28 Vomiting cephalexin Allergy Unknown Hives Verified 03/04/24 13:28 metoclopramide Allergy Unknown Hallucinati Verified 03/04/24 13:28 ng Exam Const: General: healthy appearing and alert Orientation/consciousness: patient oriented x3 Resp: Effort & Inspection: normal respiratory effort GI: GI Palp: Yes Soft to palpation, No Tenderness to palpation present (GI) and Yes Other GI palpation findings present ( ) : External Female Exam: normal external appearance Bimanual exam- vagina & uterus: consistency normal Bimanual Exam- Adnexa, other: normal adnexae and No adnexal tenderness Neuro: General: patient oriented x3 Assessment and Plan Assessment and plan (1) 37 weeks gestation of : Code(s): Z3A.37 - 37 weeks gestation of Status: Acute (2) History of 2 sections: Code(s): Z98.891 - History of uterine scar from previous surgery Status: Acute (3) Uterine contractions: Code(s): O47.9 - False labor, unspecified Status: Acute Assessment and Plan: as the patient is in early labor we will be proceeding with a repeat section
[2024-03-05] MEDS: LACTATED RINGERS 1,000 ML 125 ML IV CONT (01:20)
[2024-03-05] MEDS: ACETAMINOPHEN 500 MG TABLET 1000 MG PO (01:20)
[2024-03-05 01:33] LABS: Basophils Percent Auto 0.3 % (0.2-1.2); Eosinophils Absolute Auto 0.1 K/mm3 (0-0.3); Eosinophils Percent Auto 0.7 % (0-4.4); Hematocrit 34.4 % (37.0-47.0); Hemoglobin 11.8 g/dL (12.0-15.0); Immature Granulocyte Absolute 0.12 K/mm3 (0.00-0.031); Immature Granulocyte Percent A 0.8 % (0-0.5); Immature Platelet Fraction Pct 15.3 % (0.9-11.2); Lymphocytes Absolute Auto 3.71 K/mm3 (0.9-3.2); Lymphocytes Percent Auto 24.2 % (18.3-44.2); Mean Corpuscular HGB Conc 34.3 g/dl (32-36); Mean Corpuscular Hemoglobin 31.5 pg (26-34); Mean Corpuscular Volume 91.7 fl (80-100); Mean Platelet Volume 13.5 fl (7.4-10.4); Monocytes Absolute Auto 1.2 K/mm3 (0.1-0.6); Monocytes Percent Auto 7.7 % (2.6-8.5); Neutrophils Absolute Auto 10.2 K/mm3 (1.3-6.7); Neutrophils Percent Auto 66.3 % (45.5-73.1); Platelet Count Result 191 k/mm3 (150-375); Red Blood Count 3.75 M/mm3 (4.2-5.4); Red Cell Distribution Width 13.6 % (11.5-14.5); White Blood Count 15.3 K/mm3 (4.5-10.0)
[2024-03-05] MEDS: ONDANSETRON INJ 4 MG/2 ML VIAL IV PUSH (01:38)
[2024-03-05] MEDS: FAMOTIDINE 20 MG/2 ML VIAL IV PUSH (01:39)
[2024-03-05] MEDS: CLINDAMYCIN 900 MG/D5W 50 ML 900 MG/50 ML PIGGYBACK 50 MG IVPB (01:50)
[2024-03-05 01:52] LABS: Rapid Plasma Reagin Non-Reactive (NonReactive)
[2024-03-05 02:20] LABS: HIV 1/2 Ab P24 Ag Result Negative (Negative)
[2024-03-05] MEDS: METHYLENE BLUE 0.5% INJ 10 ML AMPULE 20 ML IRRIGATION (02:30)
--- NOTE | 2024-03-05 02:57 | W.PM.OBCSD ---
OB - Delivery Note Procedure Delivery date: 03/05/24 Pre-op diagnosis: Previous Delivery (X2) and Other ( labor 37 and 6 7th weeks) Post-op Diagnosis: Other ( bladder injury) Delivery monitor: External FHT and External Uterine Procedure Performed: Repeat Secondary branch: low cervical, transverse Surgeon: Brisa Pool MD Anesthesia type: Spinal Description of Procedure/Findings: The patient was placed under spinal anesthesia in the dorsal supine position a leftward tilt. Once anesthesia was deemed adequate she was prepped and draped in usual sterile fashion. A Pfannenstiel skin incision was made through her prior incision and carried down to underlying layer of fascia which was nicked in the midline. Bleeding vessels in the subcutaneous tissue were cauterized for hemostasis. The fascial incision was extended laterally using Butts scissors. Ochsner was used to tent the fascia which was then dissected off using sharp and blunt dissection. The rectus muscles are very densely adherent to 1 another and using Butts scissors the scar tissue was dissected. High in the incision the peritoneum was grasped with a Peon and entered with Metzenbaum scissors. The incision was extended with blunt traction. The pelvis was inspected and the bladder was noted to a 4cm injury to the very top the dome of the bladder. The Vang bulb was visible. The bladder was very densely adherent lower uterine segment and high upon the mid uterus. The bladder was dissected off the uterus using sharp and blunt dissection. The bladder blade was placed and the lower uterine segment incised in a transverse fashion with the scalpel. Meconium-stained fluid is noted. The incision was extended with blunt traction. The was brought up into the incision and noted to be quite deep in the pelvis. The vertex was delivered while the music library assistant applied fundal pressure. The remainder of the was fully delivered and the cord clamped and cut. The had very poor tone so the infant was handed quickly off to the nursery nurse. The placenta is room removed using manual traction after cord gases and cord blood were taken. The uterus was cleared of all clots and debris and exteriorized. The uterine incision is grasped on the distal edge with Allis clamps as the incision extended down the right sulcus. Single Allis clamp was placed at the base the extension. The uterine incision was then closed using 0 Monocryl in a running locked fashion with the same suture used to imbricate. Good hemostasis is noted. Cul-de-sac is irrigated. At this time the on-call urologist called back to the operating room and I discussed the bladder injury with him. Given that the injury was at the dome of bladder he was okay with me closing the injury. He suggested 3-0 Vicryl for the mucosa and 2-0 Vicryl for the muscular and serosal layers. The edges of the mucosa were grasped with Allis clamps and the bladder fully inspected. The mucosa was closed using 3-0 Vicryl in a running stitch. The angles were tagged. The muscular and serosal layer is closed using 2-0 Vicryl in a running imbricating stitch burying the angles. [id number] of methylene blue fluid were placed through the Vang catheter. With good distention of the incision there was no leaking. The bladder was drained. The uterus was returned to the abdomen. Good hemostasis of the incision was again noted. The fascia was closed using 0 Vicryl in a running fashion. Subcutaneous tissues are irrigated and made hemostatic using Bovie cautery. The skin is closed using 4-0 Vicryl in a subcuticular fashion. Sponge, needle, and instrument counts are correct per the OR staff. The patient was taken to recovery in stable condition. Specimen: Yes ( placenta) Estimated Blood Loss: 280 Drains: Yes ( Vang catheter) Packing: No Pathology: Yes ( see above) Complications: Other complications ( bladder inj
--- NOTE | 2024-03-05 03:13 | PM.OBDSVD ---
DS: Admitting Diagnosis Discharge Date 03/07/24 Admitting Diagnosis labor at 37 6/7 wks prior csection x 2 DS: Discharge Diagnosis Discharge Diagnosis (1) Delivery by section using transverse incision of lower segment of uterus: Code(s): O82 - Encounter for delivery without indication Status: Acute (2) Complication of cystostomy: Code(s): N99.518 - Other cystostomy complication Status: Acute OB - DS: Summary OB Procedures : Ultrasound OB Procedures Intrapartum: low cervical, transverse and Other ( repair of bladder cystotomy) OB Procedures: : None Peripartum Data Infant Delivery Method: Section Procedures: Procedures Operation Date: 03/05/24 01:30 <No data on this case meets the specified criteria> Operation Date: 03/14/24 07:30 <No data on this case meets the specified criteria> complications: none Status at Discharge Functional status at discharge: independent ambulation Overall status at discharge: patient is progressing back to baseline Time Spent with Patient Time attestation: Total time spent providing and/or coordinating discharge services: DS: Data Data Completed and Pending Labs on day of discharge: Labs from last 24 hours 03/05/24 01:21 WBC 15.3 H RBC 3.75 L Hgb 11.8 L Hct 34.4 L MCV 91.7 MCH 31.5 MCHC 34.3 RDW 13.6 Plt Count 191 MPV 13.5 H Immature Gran % (Auto) 0.8 H Neut % (Auto) 66.3 Lymph % (Auto) 24.2 [place] % (Auto) 7.7 Eos % (Auto) 0.7 Baso % (Auto) 0.3 Lymph # (Auto) 3.71 H [place] # (Auto) 1.2 H Eos # (Auto) 0.1 Baso # (Auto) 0.0 Abs Immat Gran (auto) 0.12 H Absolute Neuts (auto) 10.2 H Absolute Nucleated RBC 0.000 Nucleated RBC % 0.0 % Immature Plt Fraction 15.3 H RPR Non-reactive HIV 1&2 Ab/P24 Ag 4thGn Negative Blood Type O Positive Antibody Screen Negative Discharge Plan Discharge Attending physician on discharge: Osmin Jordan Consulting providers: Melisa Yeboah; Gem Rojas Discharging Clinician: Osmin Jordan Anticipated Discharge Date/Time: 03/08/24 03:16 Patient Disposition: Home, Self-Care Activity: may shower, may drive after 2 weeks and pelvic rest Diet: regular Wound Care Instructions: incision open to air Discharge Instructions: follow up with office for scheduling outpatient testing of bladder in 7-10 days Education: Mom and Baby Guide Given to: Mother Follow-Up: Call your delivering provider's office for an appointment to be seen in: 1 Week Mom and baby should come to the [facility] for the follow-up appointment. Appointment Date/Time: March 09, 2024 at 10:00 am What to expect at your follow-up visit: Physical Assessment Call [phone] if you are unable to keep your appointment time. BREAST CARE: * Wear a snug supportive bra. * For engorgement discomfort: Breast Feeding: * Apply warm moist washcloths * Express milk as needed to relieve engorgement * Wear loose clothing * For sore nipples: * Identify correct latch-on * Apply warm moist washcloths before and after nursing * Air dry nipples after nursing * May apply Lansinoh cream to nipples ABDOMINAL INCISION: (if applicable) * Allow incision to air dry * Do NOT use lotions for powders on your incision * When showering, allow soap and water to run over the incision, but do not wash incision EPISIOTOMY/PERINEAL CARE: * Until bleeding stops, use your mikie bottle after urinating * Change your pad frequently throughout the day * No tub baths until seen by your physician - You may shower ACTIVITY: * Rest as much as possible. * Do not exercise or lift anything heavier than your baby (such as laundry or other children.) * Avoid stairs or driving as much as possible. * Do not put anything into the vagina. No douc
[2024-03-05] MEDS: OXYTOCIN 30 UNITS/NS 500 ML 30 UNITS/500 ML BAG 125 UNITS IV CONT (04:12)
[2024-03-05] MEDS: LIDOCAINE 5% PATCH 1 PATCH TRANSDERM (06:07)
--- NOTE | 2024-03-05 06:55 | OBPPTRN ---
0550-Patient transferred to post room #288 via stretcher. Support person present. Oriented to unit, room, information board, rooming in, admission packet and security measures. Patient verbalizes understanding.
[2024-03-05] MEDS: DEXTROSE 5%/0.45% SOD CHL 1,000 ML 125 ML IV CONT (09:12)
--- NOTE | 2024-03-05 09:26 | PM.OBPNVD ---
OB - PN: Subj Subjective Date/time seen: 03/05/24 09:26 Patient comments: no complaints and pain well controlled baby status: doing well (weaning off O2 in level 2) OB - PN: Obj Data Labs 03/05/24 01:21 Labs: Laboratory Results - last 24 hr 03/05/24 01:21 WBC 15.3 H RBC 3.75 L Hgb 11.8 L Hct 34.4 L MCV 91.7 MCH 31.5 MCHC 34.3 RDW 13.6 Plt Count 191 MPV 13.5 H Immature Gran % (Auto) 0.8 H Neut % (Auto) 66.3 Lymph % (Auto) 24.2 [place] % (Auto) 7.7 Eos % (Auto) 0.7 Baso % (Auto) 0.3 Lymph # (Auto) 3.71 H [place] # (Auto) 1.2 H Eos # (Auto) 0.1 Baso # (Auto) 0.0 Abs Immat Gran (auto) 0.12 H Absolute Neuts (auto) 10.2 H Absolute Nucleated RBC 0.000 Nucleated RBC % 0.0 % Immature Plt Fraction 15.3 H RPR Non-reactive HIV 1&2 Ab/P24 Ag 4thGn Negative Blood Type O Positive Antibody Screen Negative OB - PN A/P Assessment and Plan (1) Complication of cystostomy: Code(s): N99.518 - Other cystostomy complication Status: Acute Assessment and Plan: reviewed surgery again with couple Plan day: 0 Time Spent With Patient Time: Total time spent is greater than 50% in coordination of care (as documented) at patient's floor/unit and/or counseling patient: Exam Narrative: inc c/d/i noriega-still blue tinted with blood. Good output
[2024-03-05] MEDS: KETOROLAC 15 MG/ML VIAL (*BKC) IV PUSH ×3 (09:49→21:58)
[2024-03-05] MEDS: MULTIVIT/MIN/PREN/FOL AC/IRON TABLET 1 TAB PO (09:50)
[2024-03-05] MEDS: SIMETHICONE 80 MG TAB.CHEW PO ×2 (09:50→16:07)
[2024-03-05] MEDS: ACETAMINOPHEN 325 MG TABLET 650 MG PO ×3 (09:50→21:59)
[2024-03-05] MEDS: DOCUSATE SODIUM 100 MG CAPSULE PO ×2 (09:53→16:07)
--- NOTE | 2024-03-05 15:28 | PC.NURSE ---
1230-RN took patient to 1st floor nursery via wheelchair to feed baby.
--- NOTE | 2024-03-05 15:29 | PC.NURSE ---
1345-Patient returned to floor. Pt tolerated well.
[2024-03-06 00:05] VITALS: BP 106/62; PULSE 74; RESP 16; TEMP 37; O2SAT 99
[2024-03-06 04:41] VITALS: BP 108/66; PULSE 79; RESP 16; TEMP 36.7
[2024-03-06 04:44] LABS: Basophils Percent Auto 0.2 % (0.2-1.2); Eosinophils Absolute Auto 0.2 K/mm3 (0-0.3); Eosinophils Percent Auto 1.3 % (0-4.4); Hematocrit 31.6 % (37.0-47.0); Hemoglobin 10.3 g/dL (12.0-15.0); Immature Granulocyte Absolute 0.06 K/mm3 (0.00-0.031); Immature Granulocyte Percent A 0.5 % (0-0.5); Immature Platelet Fraction Pct 11.4 % (0.9-11.2); Lymphocytes Absolute Auto 2.13 K/mm3 (0.9-3.2); Lymphocytes Percent Auto 17.6 % (18.3-44.2); Mean Corpuscular HGB Conc 32.6 g/dl (32-36); Mean Corpuscular Volume 98.1 fl (80-100); Mean Platelet Volume 13.4 fl (7.4-10.4); Monocytes Percent Auto 8.1 % (2.6-8.5); Neutrophils Absolute Auto 8.8 K/mm3 (1.3-6.7); Neutrophils Percent Auto 72.3 % (45.5-73.1); Platelet Count Result 138 k/mm3 (150-375); Red Blood Count 3.22 M/mm3 (4.2-5.4); Red Cell Distribution Width 13.9 % (11.5-14.5); White Blood Count 12.1 K/mm3 (4.5-10.0)
--- NOTE | 2024-03-06 06:36 | PM.OBPNVD ---
OB - PN: Subj Subjective Date/time seen: 03/06/24 06:36 Patient comments: no complaints and pain well controlled baby status: doing well OB - PN: Obj Data Labs 03/06/24 04:28 Labs: Laboratory Results - last 24 hr 03/06/24 04:28 WBC 12.1 H RBC 3.22 L Hgb 10.3 L Hct 31.6 L MCV 98.1 D MCH 32.0 MCHC 32.6 RDW 13.9 Plt Count 138 L MPV 13.4 H Immature Gran % (Auto) 0.5 Neut % (Auto) 72.3 Lymph % (Auto) 17.6 L [place] % (Auto) 8.1 Eos % (Auto) 1.3 Baso % (Auto) 0.2 Lymph # (Auto) 2.13 [place] # (Auto) 1.0 H Eos # (Auto) 0.2 Baso # (Auto) 0.0 Abs Immat Gran (auto) 0.06 H Absolute Neuts (auto) 8.8 H Absolute Nucleated RBC 0.000 Nucleated RBC % 0.0 % Immature Plt Fraction 11.4 H OB - PN A/P Plan day: 2 Plan: routine care Time Spent With Patient Time: Total time spent is greater than 50% in coordination of care (as documented) at patient's floor/unit and/or counseling patient: Time with patient: less than 15 minutes Exam Const: General: cooperative, healthy appearing and comfortable Nutritional Appearance: average body habitus Orientation/consciousness: oriented to person, oriented to place and oriented to time Resp: Effort & Inspection: normal respiratory effort Cardio: Rate: regular rate Rhythm: regular rhythm Heart sounds: S1 normal heart sound present and S2 normal heart sound present GI: Inspection: normal to inspection and incision (cdi)
[2024-03-06 08:10] VITALS: BP 107/70; PULSE 70; RESP 18; TEMP 37.2; O2SAT 100
[2024-03-06] MEDS: SIMETHICONE 80 MG TAB.CHEW PO ×2 (09:43→17:19)
[2024-03-06] MEDS: IBUPROFEN 600 MG TABLET PO ×3 (09:43→23:00)
[2024-03-06] MEDS: MULTIVIT/MIN/PREN/FOL AC/IRON TABLET 1 TAB PO (09:43)
[2024-03-06] MEDS: ACETAMINOPHEN 325 MG TABLET 650 MG PO ×3 (09:43→23:00)
[2024-03-06] MEDS: HYDROcodone/acetaminophen (*CRX) 5-325 MG TABLET 1 TAB PO (09:43)
[2024-03-06] MEDS: DOCUSATE SODIUM 100 MG CAPSULE PO ×2 (09:43→17:19)
[2024-03-06] MEDS: LIDOCAINE 5% PATCH 1 PATCH TRANSDERM (10:58)
--- NOTE | 2024-03-06 14:46 | WPDANLDPN2 ---
Anes-Prog Note L&D Date/Time: 03/06/24 14:46 Comfortable throughout: section Neuraxial method: spinal Epidural/Spinal procedure site: clean & non-tender Neuro status: Neuro function grossly intact. Cardiovascular status: normal Respiratory status: normal Airway patency: baseline Mental status: baseline Post-Op hydration status: normal Vital Signs: Last Vital Signs Temp 37.2 C 03/06/24 08:10 Pulse 70 03/06/24 08:10 Resp 18 03/06/24 08:10 BP 107/70 03/06/24 08:10 Pulse Ox 100 03/06/24 08:10 O2 Del Method Room Air 03/05/24 08:00 Pain score (VAS): 0 I/O: Intake & Output 03/05/24 03/06/24 03/06/24 23:59 07:59 15:59 Intake Total 1050 500 Output Total 1250 1200 1450 Balance -200 -700 -1450 Post-procedural complaints: none Patient feedback: Patient satisfied with anesthetic care.
--- NOTE | 2024-03-06 14:46 | WPDANLDNPN2 ---
Anes-Prog Note L&D-Neuraxial Date/Time: 03/06/24 14:46 Neuraxial medications: intrathecal PF morphine Opiod-related complaints: none Patient feedback: Patient satisfied with post-operative pain management.
--- NOTE | 2024-03-06 15:45 | PC.NURSE ---
Mother verbalizes she is able to independently latch with appropriate positioning and alignment. She denies any nipple discomfort and is responsively . Infant is currently meeting outcomes for weight, output, jaundice, blood sugar and feeding frequencies of 8-12 times in 24 hours. Mother pumped while baby was in level 2, but is no longer pumping since infant is going to breast at each feeding. She had low milk production with her first baby, but no history of any risk factors that she knows of. Encouraged regular breast stimulation and monitoring infant for weight jaundice, and output. Mother declines any additional assistance or education at this time. Mother is encouraged to call for assistance if her infant doesn?t latch, pain with latching, questions or concerns. Mother voiced understanding of information shared along with the mom/baby guide for an additional resource. Reported to the Primary RN.
[2024-03-06 20:20] VITALS: BP 130/82; PULSE 74; RESP 18; TEMP 36.8; O2SAT 100
[2024-03-07] MEDS: ACETAMINOPHEN 325 MG TABLET 650 MG PO ×2 (05:00→12:02)
[2024-03-07] MEDS: IBUPROFEN 600 MG TABLET PO ×2 (05:00→12:01)
--- NOTE | 2024-03-07 07:22 | PM.OBPNVD ---
OB - PN: Subj Subjective Date/time seen: 03/07/24 07:22 Patient comments: no complaints and pain well controlled baby status: doing well and nursing well OB - PN: Obj Data Labs 03/06/24 04:28 OB - PN A/P Plan day: 3 Plan: routine care Comments: teach use of leg bag Time Spent With Patient Time: Total time spent is greater than 50% in coordination of care (as documented) at patient's floor/unit and/or counseling patient: Time with patient: less than 15 minutes Exam Const: General: cooperative, healthy appearing and comfortable Nutritional Appearance: average body habitus Orientation/consciousness: oriented to person, oriented to place and oriented to time HENMT: Head: normal to inspection Resp: Effort & Inspection: normal respiratory effort Cardio: Rate: regular rate Rhythm: regular rhythm Heart sounds: S1 normal heart sound present and S2 normal heart sound present GI: Inspection: normal to inspection and incision (cdi)
[2024-03-07 07:40] VITALS: BP 114/65; PULSE 65; RESP 16; TEMP 36.5; O2SAT 100
[2024-03-07] MEDS: DOCUSATE SODIUM 100 MG CAPSULE PO (10:37)
[2024-03-07] MEDS: SIMETHICONE 80 MG TAB.CHEW PO ×2 (10:37→12:01)
[2024-03-07] MEDS: MULTIVIT/MIN/PREN/FOL AC/IRON TABLET 1 TAB PO (10:37)
[2024-03-07] MEDS: LIDOCAINE 5% PATCH 1 PATCH TRANSDERM (12:03)
[2024-03-07 12:30] VITALS: BP 121/73; PULSE 90; RESP 16; TEMP 36.6; O2SAT 99
--- NOTE | 2024-03-07 12:40 | PC.NURSE ---
Went to patient room to observe a . had to start supplementation due to a low blood glucose. Upon entering the room, baby was very sleepy and mom said she attempted to breastfeed but baby would not latch. It has been less than 3 hours since infant had her last supplementation bottle. Discussed with parents how formula digests slower than breastmilk and may need a little more time before she is ready to feed. Mother does affirm that infants feedings and latch through the night were good and she is not having any problems. phone number written on white board and patient instructed to call for further latch check and questions. Reported to Primary RN.
== END 2024-03-07 18:25 | disposition home or self-care (01) | DRG 787 ==
LOC: ANHLDR 03-05 03:17 → ANHOB2 03-05 06:01
PROVIDERS: Admitting Provider Obstetrics & Gynecology Gynecology; PCP Nurse Practitioner Family; Visit Provider Obstetrics & Gynecology
PROC: 10D00Z1 Extraction of Products of Conception, Low, Open Approach (ICD-10-PCS; CPT 59514; principal; 2024-03-05 01:30)
DX: O34.211 Maternal care for low transverse scar from previous cesarean delivery (principal); N99.71 Accidental puncture and laceration of a genitourinary system organ or structure during a genitourinary system procedure; O71.5 Other obstetric injury to pelvic organs; Z37.0 Single live birth; Z3A.37 37 weeks gestation of pregnancy; O77.0 Labor and delivery complicated by meconium in amniotic fluid
CPT/HCPCS: 36415; 85025; 85055; 86592; 86703; 86850; 86900; 86901; 88307; A9270; G0432; J1580; J1885; J2274; J2405; J2590; J7120; Q9968